=== PATIENT | female | born 1995 | race Hispanic/Latino ===

== ENCOUNTER → 2018-04-30 14:27 | Outpatient (CLI) | payer OTHER, SELFPAY ==
[2018-04-30 15:01] LABS: Appearance Urine UA CLEAR; Bilirubin Urine UA NEGATIVE (NEGATIVE); Color Urine UA YELLOW; Glucose Urine UA TRACE g/dL (Normal); Ketones Urine UA TRACE (NEGATIVE); Leukocyte Esterase Urine UA NEGATIVE (NEGATIVE); Nitrite Urine UA Negative (Negative); Occult Blood Urine UA NEGATIVE (Negative); Protein Urine UA NEGATIVE (Negative); Specific Gravity Urine UA >=1.030 (1.000-1.035); Urobilinogen Urine UA 0.2 E.U./dL (0.2)
[2018-04-30 17:19] LABS: Add Manual Diff / Slide Review NO; Basophils Percent Auto 0.2 % (0-2); Eosinophils Percent Auto 0.4 % (2-4); Hematocrit 36.2 % (36-46); Hemoglobin 12.8 g/dL (12.0-16.0); Lymphocytes Percent Auto 12.6 % (25-40); Mean Corpuscular HGB Conc 35.4 % (30-36); Mean Corpuscular Hemoglobin 33.9 PG (26-34); Mean Corpuscular Volume 95.8 fL (80-100); Monocytes Percent Auto 7.2 % (3-14); Neutrophils Absolute Auto 8100 /uL (3000-5900); Neutrophils Percent Auto 79.6 % (50-75); Platelet Count 303 X10^3/uL (150-400); Red Blood Cell Count 3.78 X10^6/uL (4.0-5.2); Red Cell Distribution Width 13.2 % (11.6-14.8); White Blood Cell Count 10.2 X10^3/uL (4.5-11.0)
[2018-04-30 17:31] LABS: Hepatitis B Surface Antigen NEGATIVE s/c (NEGATIVE)
[2018-04-30 17:54] LABS: HIV 1 and 2 Antibody NEGATIVE (NEGATIVE); Hep C Virus Ab w/Reflex Quant NEGATIVE s/c (NEGATIVE)
[2018-05-04 15:01] LABS: HSV 2 IGG AB < 0.90 index (< 0.90); HSV1IGG < 0.90 index (< 0.90)
[2018-05-07 14:19] LABS: Rapid Plasma Reagin NON-REACTIVE
== END ==
PROVIDERS: PCP Family Medicine; Visit Provider Obstetrics & Gynecology
DX: Z34.91 Encounter for supervision of normal pregnancy, unspecified, first trimester (principal)
CPT/HCPCS: 36415; 80055; 81003; 86695; 86696; 86703; 86787; 86803; 86850; 86900; 86901; 87077; 87086

== ENCOUNTER → 2018-06-03 11:03 | Outpatient (CLI) | payer OTHER, MEDICAID, SELFPAY ==
[2018-06-10 15:49] LABS: AFP, Serum 78.8 ng/mL; Calc Gestational Age 17.4; Cigarette Smoker N; Donated Egg NOT GIVEN; Donor Egg Age NOT GIVEN; Estriol, Free 1.05 ng/mL; Inhibin A, Dimeric 83 pg/mL; Maternal Ethnicity HISPANIC; Maternal Weight 167 lbs; Number of Fetuses 1; Previous Pregnancy Down Syndro NOT GIVEN; hCG, MoM 0.88; hCG, Serum 22.2 IU/mL
== END ==
PROVIDERS: Family Provider Family Medicine; PCP Family Medicine; Visit Provider Obstetrics & Gynecology
DX: Z34.02 Encounter for supervision of normal first pregnancy, second trimester (principal); Z3A.17 17 weeks gestation of pregnancy
CPT/HCPCS: 36415; 82105; 82677; 84702; 86336

== ENCOUNTER → 2018-06-22 10:52 | Outpatient (CLI) | payer OTHER, MEDICAID, SELFPAY ==
--- NOTE | 2018-06-22 10:54 | DI.US.S_ITS ---
PROCEDURE: US OB >= 14 WEEKS FETUS INDICATIONS: 20 week anatomic survey OUTSIDE/PRIOR DATING DATA: Last menstrual period (LMP): 01/05/18. LMP-based estimated date of delivery (ANTOINE): 10/12/18. First dating scan (date and location): 04/02/18, by Dr. Long. Estimated date of delivery (ANTOINE) from first dating scan: 11/08/18, by Dr. Long. TECHNIQUE: Real-time scanning was performed of the fetus, with image documentation and biometric measurements. Endovaginal scanning: Not needed for this study. COMPARISON: [facility], , OB >= 14 WEEKS FETUS, 06/03/2018, 10:52. FINDINGS: General: A single living intrauterine gestation is present. Presentation: Vertex. Placenta: Placental position is posterior, without previa. Amniotic fluid index: 10.0 cm, normal range is 5-24 cm. heart rate: 160 beats per minute. Maternal cervical canal: 4.6 cm long. Normal lower limit is 2.5 cm. biometrics: Biparietal diameter: 4.7 cm, 20 weeks 1 day Head circumference: 17.5 cm, 20 weeks 0 days Abdominal circumference: 15.1 cm, 20 weeks 3 days Femur length: 3.2 cm, 20 weeks 1 day Estimated gestational age from initial scan: 20 weeks 1 day Composite gestational age from present scan: 20 weeks 1 day Estimated weight and percentile: 340 g, 50th percentile Measurement variability for biometric dating: +/- 7 days from 14 weeks to 15 weeks 6 days gestation, +/- 10 days from 16 weeks to 21 weeks 6 days gestation, +/- 2 weeks from 22 weeks to 27 weeks 6 days gestation, +/- 3 weeks for 28 weeks gestation or later. weight reference: 4500 g or EFW >90/95% is considered macrosomia or large for gestational age. EFW <10% is small for gestational age. EFW 5% or less is considered intra-uterine growth restriction. Anatomic survey: Neuro: Ventricles are non-dilated at less than 10 mm. Cisterna magna is normal at 3-11 mm. Cerebellum is normal in size and morphology. Nuchal skin fold: Normal at less than 6 mm between 14-21 weeks gestational age. Face: Nose and lips, facial profile are normal. Spine: No evidence for spina bifida. Heart: 4-chambered heart is present, with normal ventricular outflow tracts. Diaphragm: Diaphragm is intact. Stomach: Left-sided stomach is present. Kidneys: No hydronephrosis. Normal is less than 5 mm in 2nd trimester, less than 7 mm in 3rd trimester. Cord: 3-vessel cord has orthotopic insertion. Bladder: Normal in size. Extremities: All 4 extremities identified. IMPRESSION: Appropriate interval growth, no anomalies seen. The delivery date is projected to be centered on 11/08/18, plus or -5 days, based on the first OB ultrasound performed by Dr. Long. Dictated by: Samuel Guaman M.D. on 06/22/2018 at 13:23 Approved by: Samuel Guaman M.D. on 06/22/2018 at 13:26
== END ==
PROVIDERS: Family Provider Family Medicine; PCP Family Medicine; Visit Provider Obstetrics & Gynecology
DX: Z36.89 Encounter for other specified antenatal screening (principal); Z3A.20 20 weeks gestation of pregnancy
CPT/HCPCS: 76811

== ENCOUNTER → 2018-07-30 14:19 | Outpatient (CLI) | payer OTHER, MEDICAID, SELFPAY ==
[2018-07-30 15:33] LABS: Hematocrit 28.9 % (36-46); Hemoglobin 10.5 g/dL (12.0-16.0)
[2018-07-30 16:04] LABS: GTT (PREG) 1 Hour PP 50gm Dose 119 mg/dL (76-139)
== END ==
PROVIDERS: Family Provider Family Medicine; PCP Family Medicine; Visit Provider Obstetrics & Gynecology
DX: Z34.92 Encounter for supervision of normal pregnancy, unspecified, second trimester (principal)
CPT/HCPCS: 36415; 82950; 85014; 85018

== ENCOUNTER → 2018-10-06 15:23 | Outpatient (CLI) | payer OTHER, MEDICAID, SELFPAY ==
[2018-10-07 13:01] LABS: Strep Grp B PCR POS for Grp B Strep
== END ==
PROVIDERS: Family Provider Family Medicine; PCP Family Medicine; Visit Provider Obstetrics & Gynecology
DX: Z34.83 Encounter for supervision of other normal pregnancy, third trimester (principal); Z3A.35 35 weeks gestation of pregnancy
CPT/HCPCS: 87653

== ENCOUNTER 2018-10-06 16:03 | Outpatient (CLI) | payer OTHER, MEDICAID, SELFPAY | END 2018-10-06 16:50 | disposition home or self-care (01) | LOC: OB 10-07 10:34 | PROVIDERS: Family Provider Family Medicine; PCP Family Medicine; Visit Provider Obstetrics & Gynecology | DX: O36.8130 Decreased fetal movements, third trimester, not applicable or unspecified (principal); Z3A.35 35 weeks gestation of pregnancy | CPT/HCPCS: 59025; 87653; G0378; G0379 ==

== ENCOUNTER 2018-10-13 13:12 | Outpatient (CLI) | payer OTHER, MEDICAID, SELFPAY | END 2018-10-13 13:44 | disposition home or self-care (01) | LOC: LABOR 13:30 → OB 15:37 | PROVIDERS: Family Provider Family Medicine; PCP Family Medicine; Visit Provider Obstetrics & Gynecology | DX: O41.03X0 Oligohydramnios, third trimester, not applicable or unspecified (principal); Z3A.36 36 weeks gestation of pregnancy | CPT/HCPCS: 59025; G0378; G0379 ==

== ENCOUNTER 2018-10-20 15:05 | Observation (INO) | payer OTHER, MEDICAID, SELFPAY | END 2018-10-20 17:18 | disposition home or self-care (01) | PROVIDERS: Admitting Provider Obstetrics & Gynecology; Visit Provider Obstetrics & Gynecology | DX: O41.03X0 Oligohydramnios, third trimester, not applicable or unspecified (principal); Z3A.37 37 weeks gestation of pregnancy | CPT/HCPCS: 59025; 59050; G0378; G0379 ==

== ENCOUNTER 2018-10-22 17:18 | Outpatient (CLI) | payer OTHER, MEDICAID, SELFPAY | END 2018-10-22 18:35 | disposition home or self-care (01) | LOC: LABOR 18:30 → OB 10-25 16:26 | PROVIDERS: Family Provider Obstetrics & Gynecology; PCP Obstetrics & Gynecology; Visit Provider Obstetrics & Gynecology | DX: O41.03X0 Oligohydramnios, third trimester, not applicable or unspecified (principal); Z3A.37 37 weeks gestation of pregnancy; O32.1XX0 Maternal care for breech presentation, not applicable or unspecified | CPT/HCPCS: 59025; G0378; G0379 ==

== ENCOUNTER 2018-10-25 13:56 | Inpatient (IN) | payer OTHER, MEDICAID, SELFPAY ==
--- NOTE | 2018-10-25 | PATH_ITS ---
[facility] Accession Number: [id number] . 01 Material submitted: . BILATERAL FALLOPIAN TUBE SEGEMENTS . 02 Diagnosis: Bilateral Fallopian Tube Segments, Procedure Not Specified: Complete cross-sections of segments of fallopian tube x2. MRV/10/28/2018 . 02 Electronically signed: . Sandie Lucas MD, Pathologist NPI- [id number] . 01 Gross description: . Received in formalin, labeled bilateral fallopian tube segments, are two nonfimbriated fallopian tube segments (segment #1: length-0.9 cm, diameter-0.5 cm; segment #2: length-1.2 cm, diameter-0.5 cm) with mendez-pink smooth shiny serosa and mendez unremarkable lumens. No nodules, masses or lesions are identified. The segments are trisected and entirely submitted in cassettes A1 and A2, respectively. ([id number]) /MRV . 02 Pathologist provided ICD-10: Z30.2 . 02 CPT . 560433 Performed at: 01 [facility] [address], [place], [place] [id number] MD Abhishek Mayes MD Phone: [phone] Performed at: 02 [facility] [address] [place], [place] [id number] MD Lynn Gray MD Phone: [phone]
--- NOTE | 2018-10-25 15:43 | DI.US.S_ITS ---
PROCEDURE: US OB >= 14 WEEKS FETUS INDICATIONS: ROMA OUTSIDE/PRIOR DATING DATA: Last menstrual period (LMP): 01/05/18. LMP-based estimated date of delivery (ANTOINE): 10/12/18. First dating scan (date and location): 04/02/18. Estimated date of delivery (ANTOINE) from first dating scan: 11/08/17. TECHNIQUE: Real-time scanning was performed of the fetus, with image documentation and biometric measurements. Endovaginal scanning: None COMPARISON: [facility], US, US OB >= 14 WEEKS FETUS, 10/13/2018, 13:03. FINDINGS: General: A single living intrauterine gestation is present. Presentation: Breech Placenta: Placental position is posterior, without previa. Amniotic fluid index: 8.5 cm heart rate: 158 beats per minute. Maternal cervical canal: Not well-seen due to position and decompressed urinary bladder. Anatomic survey: Four-chamber heart and chest are within normal limits. IMPRESSION: 1. Single live intrauterine with fetus in breech presentation. heart rate is 158 beats per minute. 2. Normal amount of amniotic fluid with ROMA measures 8.5 cm. Dictated by: Leonides Hudson M.D. on 10/25/2018 at 16:14 Approved by: Leonides Hudson M.D. on 10/25/2018 at 16:21
[2018-10-25 18:53] LABS: Add Manual Diff / Slide Review NO; Basophils Absolute Auto 0 /uL (0-100); Basophils Percent Auto 0.3 % (0-2); Eosinophils Absolute Auto 100 /uL (0-450); Eosinophils Percent Auto 0.8 % (2-4); Hematocrit 30.1 % (36-46); Lymphocytes Absolute Auto 2100 /uL (1100-4500); Mean Corpuscular Hemoglobin 29.1 PG (26-34); Mean Corpuscular Volume 88.2 fL (80-100); Monocytes Absolute Auto 900 /uL (0-900); Monocytes Percent Auto 8.5 % (3-14); Neutrophils Absolute Auto 7000 /uL (1500-7000); Neutrophils Percent Auto 69.4 % (50-75); Platelet Count 295 X10^3/uL (150-400); Red Blood Cell Count 3.41 X10^6/uL (4.0-5.2); Red Cell Distribution Width 15.5 % (11.6-14.8); White Blood Cell Count 10.2 X10^3/uL (4.5-11.0)
--- NOTE | 2018-10-25 18:58 | PM.PREOP ---
Pre-operative Note Interval Note History & Physical reviewed/Exam performed by Physician: Yes Changes to H&P: No
[2018-10-25] MEDS: LACTATED RINGERS 1,000 ML 100 ML IV ×3 (19:00→20:57)
[2018-10-25] MEDS: CEFAZOLIN 2 GM/100 ML FROZ.PIGGY IV (19:07)
[2018-10-25 19:12] VITALS: BP 126/74
--- NOTE | 2018-10-25 19:39 | SUR.OPER ---
FHT preoperative =172. Live male at 1941
[2018-10-25 20:15] VITALS: BP 137/85; PULSE 86; RESP 25; TEMP 36.1; O2SAT 99
[2018-10-25 20:20] VITALS: BP 119/77; BP 124/75; PULSE 70; PULSE 78; RESP 10; RESP 14; TEMP 36.1; O2SAT 100
[2018-10-25 20:25] VITALS: BP 122/75; PULSE 73; RESP 12; O2SAT 99
--- NOTE | 2018-10-25 20:25 | PM.OBHP.1 ---
OB HPI Date/Time Date of admission: 10/25/18 Date Patient Seen: 10/25/18 Time Patient Seen: 18:00 History of Present Condition Chief complaint: OBSERVATION : 2 Para: 0 Estimated Date of Delivery: 11/08/18 Estimated Gestational Age (weeks): 38 Narrative: Joyce Lopez is a 23 year old female 2 para 0 at 38 weeks gestation Patient presented to Labor and delivery for a scheduled nonstress test secondary to the borderline amniotic fluid volume and gestational hypertension. She had a nonreassuring heart rate tracing with a spontaneous deceleration lasting 2 min. Indications Operative indications ( section): placental insufficiency (Breech presentation) History of Present care: initiated at week # (8), number of visits (10) and pounds weight gain (28) Dating criteria: based on 1st trimester US only Ultrasounds: normal 1st trimester US and normal mid trimester US Obstetrical complications: gestational hypertension and other (Persistent breech presentation) Medical complications: none Preadmission Labs Blood type: O (+) positive -: Antibody screen: negative, GBS status: positive, HBsAG: negative, HIV: negative, HSV 1: negative, HSV 2: negative and RPR/VDLR: negative -: Chlamydia screen: not detected and Gonorrhea screen: not detected -: Rubella: not immune and Varicella: immune HCT: 28.9 HCAB: negative PAP: Normal Quad screen: Normal Urine: Lactobaccilus 1 hr GTT: 119 Evaluation Evaluation Baseline heart rate: 140 Variability: Moderate (11-25) monitor accelerations: Present monitor decelerations: Periodic Laboratory results: Laboratory Tests 10/25/18 18:30 WBC 10.2 RBC 3.41 L Hgb 10.0 L Hct 30.1 L MCV 88.2 MCH 29.1 MCHC 33.0 RDW 15.5 H Plt Count 295 Neut % (Auto) 69.4 Lymph % (Auto) 21.0 L Bradley % (Auto) 8.5 Eos % (Auto) 0.8 L Baso % (Auto) 0.3 Neut # (Auto) 7000 Lymph # (Auto) 2100 Bradley # (Auto) 900 Eos # (Auto) 100 Baso # (Auto) 0 PFSH Social History Smoking Status: Never smoker Social History Smoking Status: Never smoker Meds Allergies Allergy/AdvReac Type Severity Reaction Status Date / Time latex Allergy Intermediate Verified 04/02/18 16:56 Exam Vital Signs (past 8 hours): - 10/25/18 19:12 10/25/18 20:15 10/25/18 20:20 Temperature 97.0 F L Pulse Rate 86 78 Respiratory Rate 25 H 14 Blood Pressure 126/74 137/85 124/75 Pulse Oximetry 99 100 Oxygen Delivery Method Room Air Narrative Exam Narrative: Generally: Patient is sitting up in bed, no acute distress Lungs: Clear to auscultation bilaterally Cardiovascular: Regular rate and rhythm Fundal height: 37 cm Extremities: Trace edema, negative Homans ROMA: 8.5 Breech presentation Objective Labs Result Diagrams: 10/25/18 18:30 Labs: Laboratory Results - last 24 hr 10/25/18 18:30 WBC 10.2 RBC 3.41 L Hgb 10.0 L Hct 30.1 L MCV 88.2 MCH 29.1 MCHC 33.0 RDW 15.5 H Plt Count 295 Neut % (Auto) 69.4 Lymph % (Auto) 21.0 L Bradley % (Auto) 8.5 Eos % (Auto) 0.8 L Baso % (Auto) 0.3 Neut # (Auto) 7000 Lymph # (Auto) 2100 Bradley # (Auto) 900 Eos # (Auto) 100 Baso # (Auto) 0 Assessment and Plan Assessment and Plan Assessment and Plan narrative: Assessment: 23-year-old 2 para 0 at 38 weeks gestation with persistent breech presentation, gestational hypertension, borderline amniotic fluid volume, and nonreassuring heart rate tracing. Desires permanent sterilization Plan: Primary low-transverse section and bilateral tubal ligation The risks, benefits, and alternatives to the procedure were explained to the patient. The risks including bleeding, infection, injury to the bowel, bladder, or ureters. She also understands that there is a failure rate of the tubal ligation of 1 in 200. She understands all of these risks and agrees to proceed. A full PAR-Q was held and consent form was signed. Time Spent with Patient Total time spent with greater than 50% in coordination of care (as documented) at patient's floor/unit and/or counseling patient:: 15-24 minutes
--- NOTE | 2018-10-25 20:27 | SUR.PHASEI ---
IV SITE CLEAR IN RIGHT HAND AND INFUSING WITHOUT DIFFICULTLY.
[2018-10-25 20:30] VITALS: BP 119/77; PULSE 70; RESP 10; TEMP 36.2; O2SAT 100
--- NOTE | 2018-10-25 20:33 | SUR.PHASEI ---
REPORT CALLED TO [facility] IN CENTER. PT IN STABLE CONDITION, VSS. IV SITE CLEAR AND INFUSING WITHOUT DIFFICULTLY. CATHETER SECURE AND DRAINING CLEAR YELLOW URINE. DRSG TO SURGICAL SITE OBSERVED TO BE C/D/I. SCANT AMOUNT OF BLOOD OBSERVED ON WILLIAM-PAD. PT DENIES ANY NAUSEA AND STATES PAIN IS MINIMUAL AT THIS TIME.
[2018-10-25 20:35] VITALS: BP 121/75; PULSE 78; RESP 14; O2SAT 99
--- NOTE | 2018-10-25 20:45 | SUR.PHASEI ---
PT TRANSFERRED TO CENTER IN STABLE CONDITION. PT ALERT AND TALKING TO RN. BEDSIDE REPORT GIVEN TO [facility] UPON ARRIVAL TO ROOM AND TRANSFERRED CARE OF PT TO [facility] AT THAT TIME.
--- NOTE | 2018-10-25 20:46 | P.OP_ITS ---
Operative Date/Time/Diagnoses Date of procedure: 10/25/18 Time of procedure: 20:40 Pre-op diagnosis: 38 weeks gestation Persistent breech presentation Gestational hypertension Borderline amniotic fluid volume Desires permanent sterilization Nonreassuring heart rate tracing Post-op diagnosis: same Procedure: Procedures Operation Date: 10/25/18 18:30 Actual Procedures Side Surgeon p Section with bilateral tubal ligation Nicole Long MD Indications: 38 weeks gestation Gestational hypertension Borderline amniotic fluid volume Desires permanent sterilization Persistent breech presentation Nonreassuring heart rate tracing Surgeon: Nicole Long Anesthesia Type: Spinal Operative Notes Findings: Live male infant in the single footling breech presentation Nuchal cord x1 Normal uterus, tubes, and ovaries Closure Type: primary Specimen(s): portion of left tube, portion of right tube and other (Placenta, cord bloods) Applied: catheter Estimated blood loss (mL): 300 Blood products transfused: none Procedure in detail: The patient was taken to the operating room where she was placed in the seated position. Spinal anesthesia was administered. She was then placed in the dorsal supine position with a leftward tilt. She was prepped and draped in the usual sterile fashion. A timeout was performed. After spinal analgesia was found to be adequate, a Pfannenstiel skin incision was made 2 fingerbreadths above the pubic symphysis and carried through to the underlying layer fascia. The fascia was nicked in the midline, and the incision extended bilaterally with the Yanez scissors. The superior aspect of the fascial incision was grasped with a [place] clamps, elevated, and the underlying rectus muscles dissected off sharply and bluntly. Attention was then turned to the inferior aspect of this incision which in a similar fashion was grasped with a Aki clamps, elevated, and the underlying rectus muscles dissected off sharply and bluntly. The rectus muscles were in the midline. The peritoneum was identified, grasped between 2 hemostats, and entered sharply with the Metzenbaum scissors. This incision was extended superiorly and inferiorly with good visualization of the bladder. The bladder blade was inserted. The vesicouterine peritoneum was identified, grasped with the pickup, and entered sharply with the Metzenbaum scissors. This incision was extended bilaterally, and the bladder flap was created digitally. The bladder blade was reinserted. The lower uterine segment was incised in a transverse fashion with the scalpel. Upon entering the amniotic sac there was a small amount of clear amniotic fluid. The infant was delivered by total breech extraction. A nuchal cord x1 was reduced. The nose and mouth were suctioned with bulb suction. The cord was double clamped and cut. The infant was handed off to waiting RN and RT. The placenta was delivered manually. The uterus was cleared of all clots and debris. The uterine incision was repaired with #1 chromic in a running interlocking fashion, and a second layer the same suture was used for an imbricating layer. Hemostasis was achieved. The tubes and ovaries were examined and were found to be normal. The gutters were cleared of all clots and debris. The right tube was carried out to the fimbriated end. 2/[address] to the distal and a 2 cm loop of tube was ligated with 0 plain chromic x2. A 1 cm segment of tube was excised. The ends of the tube were cauterized for hemostasis. This was repeated on the patient's left tube. The bladder flap was reapproximated using 2-0 Vicryl in a running fashion. The parietal peritoneum was closed using 2-0 Vicryl in a running fashion. The fascia was reapproximated using 0 Vicryl in a running fashion. Subcutaneous layer was copiously irrigated with warm normal saline. 5 simple interrupted sutures of 3-0 Vicryl were placed to reapproximate the subcutaneous layer. The skin was closed with 4-0 undyed Vicryl in a subcuticular fashion. Steri-Strips were placed. An Aquacel dressing was placed. The uterus was expressed of a small amount of old blood. Sponge, lap, and instrument counts were correct x-2. The patient tolerated the procedure well, and was taken to PACU in stable condition. Complications: none Post-operative Condition: stable Disposition: PACU Plan for aftercare: To [facility]
[2018-10-26] MEDS: KETOROLAC 30 MG/ML VIAL IV ×3 (02:00→13:39)
[2018-10-26] MEDS: LACTATED RINGERS 1,000 ML 100 ML IV (06:06)
[2018-10-26 06:47] LABS: Hematocrit 25.8 % (36-46); Hemoglobin 8.8 g/dL (12.0-16.0)
[2018-10-26] MEDS: PRENATAL VIT,CALC/IRON/FOLIC 1 TABLET 1 TAB PO (09:47)
[2018-10-26] MEDS: DOCUSATE 250 MG CAPSULE PO (09:47)
[2018-10-26] MEDS: IBUPROFEN 600 MG TABLET PO (20:16)
--- NOTE | 2018-10-26 23:19 | P.PNOB_ITS ---
Subjective - OB Patient comments: no complaints, pain well controlled and tolerating diet [place] baby status: doing well and nursing well [place] feeding status: exclusively breast feeding Date Patient Seen: 10/26/18 Time Patient Seen: 13:30 Exam Vital Signs (past 8 hours): Oxygen Delivery Method Room Air Narrative Exam Narrative: Generally: Patient is sitting up in bed, nursing , no ac algaaciq distress Lungs: Clear to auscultation bilaterally Cardiovascular: Regular rate and rhythm Abdomen: Soft, good bowel sounds Fundal height: U -2 Incision: Clean dry and intact with Aquacel dressing Extremities: Trace edema, negative Homans Objective Labs Result Diagrams: 10/26/18 06:30 Labs: Laboratory Results - last 24 hr 10/25/18 10/26/18 18:30 06:30 Hgb 8.8 L Hct 25.8 L Blood Type O Positive Antibody Screen Negative Assessment & Plan Plan day: 1 plan OB: routine postop care Time Spent With Patient Total time spent is greater than 50% in coordination of care (as documented) at patient's floor/unit and/or counseling patient: 15-24 minutes
[2018-10-27] MEDS: IBUPROFEN 600 MG TABLET PO ×2 (08:02→13:58)
[2018-10-27] MEDS: PRENATAL VIT,CALC/IRON/FOLIC 1 TABLET 1 TAB PO (08:03)
[2018-10-27] MEDS: DOCUSATE 250 MG CAPSULE PO (08:04)
[2018-10-27 09:21] VITALS: BP 121/75; PULSE 78; RESP 14; TEMP 36.2
[2018-10-27] MEDS: MEASLES,MUMPS,RUBELLA VACC/PF 0.5 ML VIAL SUBCUT (13:55)
--- NOTE | 2018-10-28 14:30 | PM.OBDS.1 ---
Discharge Providers Date of admission: 10/25/18 13:56 Discharge Date: 10/27/18 Primary care physician: Nicole Long MD Consults: 10/25/18 23:02 Consult to Sports Medicine Trainer Routine Comment: Discharge provider: Nicole Long MD Summary Date Patient Seen: 10/27/18 Time Patient Seen: 07:45 Procedures: Primary low transverse section Spinal anesthesia Hospital Course: Patient is a 23-year-old 1 para 1 who presented on 10/25/2018 for a scheduled nonstress test. She had a prolonged deceleration that was not associated with a contraction. This was the 2nd time this had happened. Patient also had borderline amniotic fluid volume. Baby was in the breech presentation. Peripartum Data Infant Delivery Method: Section Laceration description: None Episiotomy description: None Procedures: Primary low-transverse section Spinal anesthesia complications: none Status at Discharge Cognitive/behavioral status at discharge: oriented Functional status at discharge: independent ambulation Overall status at discharge: patient is progressing back to baseline Time Spent with Patient Total time spent providing and/or coordinating discharge services: Less than 30 minutes Objective Labs Result Diagrams: 10/26/18 06:30 Exam Vital Signs (past 8 hours): Oxygen Delivery Method Room Air Narrative Exam Narrative: Generally: Patient is sitting up in bed, nursing infant, no acute distress Lungs: Clear to auscultation bilaterally Cardiovascular: Regular rate and rhythm Abdomen: Good bowel sounds Fundus: Firm at U -1 Incision: Clean dry and intact with Aquacel dressing Extremities: Trace edema, negative Homans Discharge Plan Discharge Plan Patient Disposition: Home Discharge comment: Call with fever, chills, redness or drainage around incision or bleeding vaginally more than a pad in an hour Discharge Med Rec/Prescriptions Prescriptions: No Action No Known Home Medications RF: 0 Follow up/Referrals: Nicole Long MD [Primary Care Provider] - 1 Week (Aquacel dressing removal on Thursday first at 10am, w/ Dr. Long's Nurse) Provider Discharge Instructions Diet: Regular Activity: No heavy lifting No intercourse Skin/Wound/Dressing Care Report to your healthcare provider any signs of infection, such as:: chills, fever, increased pain, unusual drainage and unusual redness Dressing: Do not remove until appt next week Visit Report/Discharge Packet Instructions: DI for Discharge Data Primary Care Provider: Nicole Long Attending Provider: Nicole Long Admit Date/Time: 10/25/18 13:56 Discharges patient from system. Discharge Date/Time: 10/27/18 14:27
== END 2018-10-27 14:27 | disposition home or self-care (01) | DRG 540 ==
PROVIDERS: Admitting Provider Obstetrics & Gynecology; Family Provider Obstetrics & Gynecology; PCP Obstetrics & Gynecology; Visit Provider Obstetrics & Gynecology
PROC: 10D00Z1 Extraction of Products of Conception, Low, Open Approach (ICD-10-PCS; CPT 59514; principal; 2018-10-25 18:30)
DX: O13.4 Gestational [pregnancy-induced] hypertension without significant proteinuria, complicating childbirth (principal); O32.1XX0 Maternal care for breech presentation, not applicable or unspecified; Z3A.38 38 weeks gestation of pregnancy; Z37.0 Single live birth; O99.824 Streptococcus B carrier state complicating childbirth; Z30.2 Encounter for sterilization
CPT/HCPCS: 36415; 58611; 59050; 59514; 76811; 85014; 85018; 85025; 86850; 86900; 86901; G0379; J0690; J1885; J2274; J2405; J2590; J3010